=== PATIENT | male | born 1955 | race Caucasian/White ===

== ENCOUNTER → 2021-05-11 | Outpatient (CLI) | payer MEDICAID ==
--- NOTE | 2021-05-11 11:32 | Diagnostic Imaging Report ---
HISTORY: Distal right radius fracture. TECHNIQUE: Three views of the right wrist. COMPARISON: Outside radiographs from 04/28/2021. FINDINGS: There is a mildly comminuted intra-articular fracture of the distal right radius with mild lateral displacement. There is a nondisplaced ulnar styloid process fracture. There is deformity of the 1st metacarpal which appears to be chronic from old trauma. There is soft tissue swelling about the right wrist. IMPRESSION: 1. Mildly displaced, intra-articular fracture of the distal right radius in stable alignment. 2. Nondisplaced ulnar styloid process fracture. 3. Post traumatic deformity of the 1st metacarpal appears chronic. Dictated by: Dictated on workstation # [id number]
== END ==
LOC: ORTHO 09:56
PROVIDERS: ATTEND Orthopaedic Surgery
DX: S52.501A Unspecified fracture of the lower end of right radius, initial encounter for closed fracture (principal); X58.XXXA Exposure to other specified factors, initial encounter
CPT/HCPCS: 29075; 73110; G0463

== ENCOUNTER → 2021-06-01 | Outpatient (CLI) | payer MEDICAID ==
--- NOTE | 2021-06-01 10:22 | Diagnostic Imaging Report ---
INDICATION: Closed fracture of the distal radius and ulna. TIME OF EXAM: 10:00 AM. COMPARISON: Correlation is made with the prior radiographs from 05/11/2021. FINDINGS: Overlying cast material obscures bone detail. The impacted fracture of the distal radius is again noted demonstrating near-anatomic alignment. This appears to be intra-articular. The fracture lines remain visible. The fracture of the distal ulna is stable showing anatomic alignment. The carpus and metacarpals are stable. There are old fractures of the 1st and 5th metacarpals. IMPRESSION: The distal radius and ulnar fractures show anatomic alignment. Fracture lines remain clearly visible. Dictated by: Dictated on workstation # [id number]
== END ==
LOC: ORTHO 09:47
PROVIDERS: ATTEND Orthopaedic Surgery
DX: S52.571D Other intraarticular fracture of lower end of right radius, subsequent encounter for closed fracture with routine healing (principal); S52.601D Unspecified fracture of lower end of right ulna, subsequent encounter for closed fracture with routine healing; X58.XXXD Exposure to other specified factors, subsequent encounter
CPT/HCPCS: 73110; G0463; 99213

== ENCOUNTER → 2021-06-22 | Outpatient (CLI) | payer MEDICAID ==
--- NOTE | 2021-06-22 11:26 | Diagnostic Imaging Report ---
Indication: Wrist fracture, recheck. Comparison: 06/01/2021 Findings: 3 views of the right wrist demonstrate stable alignment of the distal radial and ulnar fractures. There is callus formation present. Impression: Stable-appearing right wrist fracture. Dictated by: Dictated on workstation # [id number]
== END ==
LOC: ORTHO 09:47
PROVIDERS: ATTEND Orthopaedic Surgery
DX: S52.501A Unspecified fracture of the lower end of right radius, initial encounter for closed fracture (principal); X58.XXXA Exposure to other specified factors, initial encounter
CPT/HCPCS: 73110; G0463; 99213